=== PATIENT | female | born 1950 | race Caucasian/White ===

== ENCOUNTER 2016-06-14 14:48 | Inpatient (IN) | payer MEDICARE ==
[~2016-06-14] VITALS: Ht 160 cm; Wt 102.0 kg
[2016-06-17] MEDS ORDERED: OXCA600T PO (10:39)
[2016-06-17] MEDS ORDERED: SYNT175T PO (10:40)
[2016-06-17] MEDS ORDERED: AMLO5 PO (10:41)
[2016-06-17] MEDS ORDERED: LISI-519 PO (10:42)
[2016-07-01] MEDS ORDERED: ENOX40P SQ (07:23)
[2016-07-01] MEDS ORDERED: PERC5TAB12 PO (07:24)
[2016-07-01] MEDS ORDERED: NALOXONE HCL 0.4 MG/ML AMP IV PRN (07:30)
[2016-07-01] MEDS ORDERED: SODIUM CHLORIDE 0.9% FLUSH 5 ML FLUSH IVF PRN (07:30)
[2016-07-01] MEDS ORDERED: Post-op Orders (for Pharmacy) MISC XX ONE (07:30)
[2016-07-01] MEDS ORDERED: ZOLPIDEM TARTRATE 5 MG TAB PO PRN (07:30)
[2016-07-01] MEDS ORDERED: oxyCODONE/ACETAMINOPHEN 5 MG/325 MG TAB PO PRN (07:30)
[2016-07-01] MEDS ORDERED: diphenhydrAMINE HCL 50 MG/ML VIAL IV PRN (07:30)
[2016-07-01] MEDS ORDERED: MAGNESIUM HYDROXIDE SUSP 30 ML CUP PO PRN (07:30)
[2016-07-01] MEDS: POVIDONE IODINE 7.5% SCRUB 118 ML BOTTLE TOP SCH (07:30)
[2016-07-01] MEDS ORDERED: BISACODYL 10 MG SUPP PR PRN (07:30)
[2016-07-01] MEDS ORDERED: LISINOPRIL 5 MG TAB PO PRN (07:30)
[2016-07-01] MEDS ORDERED: ALUMINUM/MAGNESIUM/SIMETH 30 ML CUP PO PRN (07:30)
[2016-07-01 07:50] VITALS: BP 160/83; PULSE 64; RESP 20; TEMP 97.8; O2SAT 97
[2016-07-01] MEDS: CHLORHEXIDINE GLUCONATE 4% SOLN 120 ML BTL TOP SCH (08:15)
[2016-07-01] MEDS ORDERED: VANCOMYCIN 1000 MG/NS 250 ML (for <70 kg) IV SCH ×2 (08:15)
[2016-07-01] MEDS ORDERED: SODIUM CHLORIDE 0.9% IV SCH (08:15)
[2016-07-01] MEDS ORDERED: TRANEXAMIC ACID IV SCH (08:15)
[2016-07-01] MEDS: TRANEXAMIC PERI-ARTICULAR 3,000 MG/NS 100 ML P-ARTICULR SCH ×4 (08:15→11:24)
[2016-07-01] MEDS ORDERED: ceFAZolin 2 GM PREMIX 50 ML IV SCH (08:15)
[2016-07-01] MEDS: BUPIVACAINE LIPOSO PF 1.3% INJ 20 ML in SODIUM CHLORIDE 0.9% INJ 40 ML P-ARTICULR SCH ×2 (08:15→11:24)
[2016-07-01] MEDS: TRANEXAMIC ACID IV SCH ×2 (08:16→10:59)
[2016-07-01] MEDS: SODIUM CHLORIDE 0.9% IV SCH ×2 (08:16→10:59)
[2016-07-01] MEDS: SODIUM CHLORIDE 0.9% FLUSH 5 ML FLUSH IVF SCH ×2 (09:00→20:41)
[2016-07-01] MEDS: OXcarbazepine 600 MG TAB PO SCH ×2 (09:00→21:00)
[2016-07-01] MEDS ORDERED: NON-FORMULARY DRUG (Levothyroxine (Synthroid) 175 MCG) PO SCH (09:00)
[2016-07-01] MEDS: SODIUM CHLORID 0.9% 500 ML IV SCH ×2 (09:45→19:48)
[2016-07-01] MEDS: LACTATED RINGER'S 1000 ML IV SCH (09:45)
[2016-07-01] MEDS ORDERED: INSULIN HUMAN REGULAR 1,000 UNITS/10 ML VIAL SQ PRN (09:45)
[2016-07-01] MEDS ORDERED: METOPROLOL TARTRATE 25 MG TAB PO PRN (09:45)
[2016-07-01] MEDS ORDERED: MIDAZOLAM HCL 2 MG/2 ML VIAL ONE ×2 (09:47→09:49)
[2016-07-01] MEDS ORDERED: FAMOTIDINE 20 MG/2 ML VIAL ONE (09:48)
[2016-07-01] MEDS ORDERED: fentaNYL CITRATE 250 MCG/5 ML AMP ONE ×3 (09:49→11:30)
[2016-07-01] MEDS ORDERED: ONDANSETRON HCL 4 MG/2 ML VIAL ONE (09:49)
[2016-07-01] MEDS: LEVOTHYROXINE SODIUM 100 MCG TAB PO SCH (10:00)
[2016-07-01] MEDS: LEVOTHYROXINE SODIUM 75 MCG TAB PO SCH (10:00)
[2016-07-01] MEDS ORDERED: GENTAMICIN SULFATE 80 MG/2 ML VIAL ONE ×2 (10:10)
[2016-07-01] MEDS ORDERED: PHENYLEPH/NS 1000 MCG/10 ML SYR IV ONE (12:00)
[2016-07-01] MEDS ORDERED: LACTATED RINGER'S 1000 ML INJ 1,000 ML IV ONE (12:00)
[2016-07-01] MEDS ORDERED: PROPOFOL 200 MG/20 ML AMP IV ONE (12:00)
[2016-07-01] MEDS ORDERED: ePHEDrine/NS 50 MG/5 ML SYR IV ONE (12:00)
[2016-07-01] MEDS ORDERED: *HYDROmorphone PF 1 MG VIAL PERIprocedural Use ONLY ONE ×2 (12:51→13:22)
[2016-07-01] MEDS: SODIUM CHLOR 0.9% 1000 ML INJ 1,000 ML IV SCH ×2 (13:00→19:00)
[2016-07-01] MEDS ORDERED: DO NOT ADM ANY ANTICOAGULANT DRUGS XX PRN (13:00)
--- NOTE | 2016-07-01 13:48 | RADRPT ---
EXAM DATE/TIME: 07/01/2016 12:50 [facility] COMPARISON: No previous studies available for comparison. INDICATIONS : Post op right hip arthroplasty. MEDICAL HISTORY : None. SURGICAL HISTORY : None. ENCOUNTER: Initial ACUITY: 1 day PAIN SCORE: 6/10 LOCATION: Right hip FINDINGS: 4 views of the pelvis and right hip reveal a total hip prosthesis on the right. This is in good posit ion. No fracture or dislocation. A small amount of air is seen within the joint and overlying soft ti ssues. CONCLUSION: Right total hip prosthesis in good position. Narciso Galaviz Jr., MD on July 01, 2016 at 13:46 Board Certified Radiologist. This report was verified electronically.
[2016-07-01] MEDS: HYDROmorphone HCL PF 1 MG/ML VIAL IV PUSH PRN ×2 (16:05→20:40)
--- NOTE | 2016-07-01 17:05 | PD.CONS ---
HPI Service [facility] Hospitalists Consult Requested By Ortho Reason for Consult Medical management Primary Care Physician Non-Staff Diagnoses: History of Present Illness 66 years old female with history of osteoarthritis, hypothyroidism, trigeminal neuralgia, hypertension, admitted under ortho service for right total hip arthroplasty which patient just had, I saw her in the PACU, hospitalist consulted to see the patient for medical management. Patient currently awake alert oriented she is in mild distress due to pain from the surgery, 9 out of 10 , no nausea vomiting, no chest pain, no abdominal pain diarrhea constipation. As mentioned above patient hasH/O hypothyroidism, trigeminal neurology for which she had 2 brain surgery as per her words Review of Systems Other All 10 systems reviewed and was positive for what is mentioned in history of present illness otherwise negative Past Family Social History Allergies: Coded Allergies: Morphine (Verified Allergy, Severe, VOMIT, 07/01/16) Sulfa (Verified Allergy, Severe, SEVERE HEADACHE, 07/01/16) Hydrocodone (Verified Adverse Reaction, Severe, severe headache, 07/01/16) Past Medical History Hypothyroidism Trigeminal neuralgia Hypertension Osteoarthritis Past Surgical History Left knee arthroplasty 2 brain surgery for trigeminal neuralgia as per the patient Family History Not aware of any medical disease significant runs in her family Social History Denied tobacco or obstructive use, she drinks a glass of wine occasionally "I'm Malay " Physical Exam Vital Signs Vital Signs Date Time Temp Pulse Resp B/P Pulse Ox O2 Delivery O2 Flow Rate FiO2 07/01/16 15:00 60 12 172/85 99 07/01/16 14:30 75 12 152/70 99 07/01/16 14:15 69 14 145/67 98 07/01/16 14:00 62 14 144/69 98 07/01/16 13:45 66 12 142/81 98 07/01/16 13:30 63 12 126/66 98 07/01/16 13:15 68 14 169/81 99 07/01/16 13:00 65 12 123/72 100 07/01/16 12:45 54 12 117/60 99 Nasal Cannula 2 07/01/16 12:39 97.5 72 12 127/69 96 Nasal Cannula 2 07/01/16 07:50 97.8 64 20 160/83 97 Physical Exam GENERAL: This is a well-nourished, well-developed patient, in no apparent distress. SKIN: No rashes, warm and dry HEAD: Atraumatic. Normocephalic. EYES: Pupils equal round and reactive. Extraocular motions intact. No scleral icterus. ENT: Nose without bleeding, or drainage, Airway patent. NECK: Trachea midline. Supple CARDIOVASCULAR: Regular rate and rhythm without murmurs, gallops, or rubs. RESPIRATORY: Fair air entry bilaterally. No wheezes, rales, or rhonchi. GASTROINTESTINAL: Abdomen soft, non-tender, nondistended. Positive bowel sounds MUSCULOSKELETAL: Extremities without clubbing, cyanosis, or edema. Pedal pulses appreciated NEUROLOGICAL: Awake and alert. Moves all extremity. Normal speech.no focal neurological deficit Laboratory Laboratory Tests Test 07/01/16 07:35 Blood Type B POSITIVE Antibody Screen NEGATIVE Imaging Last Impressions Hip and Pelvis X-Ray 07/01/16 0000 Signed Impressions: Service Date/Time: Friday, July 01, 2016 12:50 - CONCLUSION: Right total hip prosthesis in good position. Narciso Galaviz Jr., MD Assessment and Plan Assessment and Plan -66 years old female admitted for -Osteoarthritis status post right total hip arthroplasty: Doing well postop PUD #0, pain management, DVT prophylaxis per ortho on Lovenox -Hypertension essential: Agree with continuing lisinopril and amlodipine, will add Vasotec as needed and monitor blood pressure -History of trigeminal neuralgia: Agree with continuing Tegretol -Hypothyroidism: continuing Synthroid -DVT prophylaxis with Lovenox postop Thank you for this consultation will follow patient along with you Discussed Condition With Patient and the nurse in the PACU Meenakshi Palma MD Jul 01, 2016 17:05
[2016-07-01 17:18] VITALS: BP 153/74; PULSE 92; RESP 17; TEMP 98.1; O2SAT 99
[2016-07-01] MEDS: ONDANSETRON HCL 4 MG/2 ML VIAL IVP PRN ×2 (18:44→20:45)
[2016-07-01 20:30] VITALS: BP 126/69; PULSE 71; RESP 17; TEMP 97.1; O2SAT 98
[2016-07-01] MEDS: oxyCODONE/ACETAMINOPHEN 5 MG/325 MG TAB PO PRN (23:06)
[2016-07-01 23:40] VITALS: BP 132/65; PULSE 71; RESP 17; TEMP 96; O2SAT 99
[2016-07-02] MEDS: HYDROmorphone HCL PF 1 MG/ML VIAL IV PUSH PRN ×3 (02:37→15:15)
[2016-07-02 03:35] VITALS: BP 130/60; PULSE 68; RESP 17; TEMP 97.6; O2SAT 94
[2016-07-02 06:13] LABS: HEMATOCRIT 35.5 % (35.0-46.0); MEAN CELL VOLUME 86.8 FL (80.0-100.0); MEAN CORPUSCULAR HEMOGLOBIN 29.2 PG (27.0-34.0); MEAN CORPUSCULAR HGB CONC 33.7 % (32.0-36.0); PLATELET COUNT 222 TH/MM3 (150-450); RED BLOOD COUNT 4.09 MIL/MM3 (4.00-5.30); RED CELL DISTRIBUTION WIDTH 13.6 % (11.6-17.2); REVIEW FLAG FINAL; WHITE BLOOD COUNT 8.7 TH/MM3 (4.0-11.0)
[2016-07-02 06:49] LABS: BICARBONATE 27.5 MEQ/L (21.0-32.0); POTASSIUM 4.2 MEQ/L (3.5-5.1)
[2016-07-02] MEDS: LEVOTHYROXINE SODIUM 75 MCG TAB PO SCH (07:24)
[2016-07-02] MEDS: LEVOTHYROXINE SODIUM 100 MCG TAB PO SCH (07:24)
[2016-07-02] MEDS: oxyCODONE/ACETAMINOPHEN 5 MG/325 MG TAB PO PRN ×4 (07:25→18:25)
[2016-07-02 08:00] VITALS: BP 138/63; PULSE 62; RESP 18; TEMP 97.2; O2SAT 100
--- NOTE | 2016-07-02 08:54 | PD.ORT.PN ---
Subjective Post Op Day #: 1 Subjective Remarks painful. Objective Vitals Vital Signs Date Time Temp Pulse Resp B/P Pulse Ox O2 Delivery O2 Flow Rate FiO2 07/02/16 08:00 97.2 62 18 138/63 100 07/02/16 07:30 100 Nasal Cannula 2.00 07/02/16 03:35 97.6 68 17 130/60 94 07/01/16 23:40 96.0 71 17 132/65 99 07/01/16 20:30 97.1 71 17 126/69 98 07/01/16 19:19 Nasal Cannula 2.00 07/01/16 17:18 98.1 92 17 153/74 99 07/01/16 16:45 97.9 69 16 169/66 98 Nasal Cannula 2 07/01/16 15:00 60 12 172/85 99 07/01/16 14:30 75 12 152/70 99 07/01/16 14:15 69 14 145/67 98 07/01/16 14:00 62 14 144/69 98 07/01/16 13:45 66 12 142/81 98 07/01/16 13:30 63 12 126/66 98 07/01/16 13:15 68 14 169/81 99 07/01/16 13:00 65 12 123/72 100 07/01/16 12:45 54 12 117/60 99 Nasal Cannula 2 07/01/16 12:39 97.5 72 12 127/69 96 Nasal Cannula 2 I/O 07/01/16 07/01/16 07/01/16 07/02/16 07/02/16 07/02/16 07:00 15:00 23:00 07:00 15:00 23:00 Intake Total 1900 ml 1030 ml 422 ml 240 ml Output Total 1200 ml 1075 ml 650 ml Balance 700 ml -45 ml 422 ml -410 ml Intake Oral 360 ml 240 ml IV Total 670 ml 422 ml Other 1900 ml Output Urine Total 200 ml 1075 ml 650 ml Estimated Blood Loss 400 ml Other 600 ml # Bowel Movements 0 0 Result Diagram: 07/02/16 0530 07/02/16 0530 Objective Remarks in bed, nad dressing c/d/i neg homans nvi Assessment & Plan Ortho Post Op Day #: 1 Problem List: Assessment and Plan s/p R ENA - posterior approach wbat - posterior hip precautions daily dressing changes lovenox d/c planning home with [facility] and pt rx in chart f/up dr. rivas 2 weeks Dylan Leyva Jul 02, 2016 08:54
--- NOTE | 2016-07-02 08:56 | HHI.FF ---
Face to Face Verification Diagnosis: (1) Primary localized osteoarthrosis, pelvic region and thigh Physical Therapy Gait training, Safety evaluation, Transfer training, bed to chair Hip: Total hip, Protocol: Right, Progress to weight bearing Canvas Knee Splint: When in bed & 2 pillows btw thighs Right LE Weight Bearing: WB as tolerated Nursing RN: 3 days/week x 2 weeks Nursing: Rodrick teaching, Dressing changes Dressing Changes: Daily dressing change I have seen patient Rena Ahuja on 07/02/16. My clinical findings support the need for the requested home health care services because: Limited ability to care for self High risk of falls I certify that my clinical findings support that this patient is homebound because: Post-op weakness Unsteady gait/balance Dylan Leyva Jul 02, 2016 08:56
--- NOTE | 2016-07-02 08:56 | HHI.DCPOC ---
Discharge Care Plan Diagnosis: (1) Primary localized osteoarthrosis, pelvic region and thigh Your Health Problems Are: Difficulty with ADL Goals to Promote Your Health * To prevent worsening of your condition and complications * To maintain your health at the optimal level Directions to Meet Your Goals Take your medications as prescribed Follow your dietary instruction Follow activity as directed Keep your appointments as scheduled Take your immunizations and boosters as scheduled If your symptoms worsen call your PCP, if no PCP go to Urgent Care Center or Emergency Room Smoking is Dangerous to Your Health. Avoid second hand smoke Call the 24-hour hour crisis hotline for domestic abuse at Dylan Leyva Jul 02, 2016 08:56
[2016-07-02] MEDS ORDERED: MISC-163 (08:57)
[2016-07-02] MEDS: amLODIPine BESYLATE 5 MG TAB PO SCH ×2 (09:00→10:27)
[2016-07-02] MEDS: SODIUM CHLORIDE 0.9% FLUSH 5 ML FLUSH IVF SCH ×2 (09:00→21:00)
[2016-07-02] MEDS: LACTATED RINGER'S 1000 ML IV SCH (09:45)
--- NOTE | 2016-07-02 09:53 | HHI.PR ---
Subjective Remarks Patient stated she is doing very well, pain is tolerable, afebrile, no chest pain or short of breath Objective Vitals Vital Signs Date Time Temp Pulse Resp B/P Pulse Ox O2 Delivery O2 Flow Rate FiO2 07/02/16 08:00 97.2 62 18 138/63 100 07/02/16 07:30 100 Nasal Cannula 2.00 07/02/16 03:35 97.6 68 17 130/60 94 07/01/16 23:40 96.0 71 17 132/65 99 07/01/16 20:30 97.1 71 17 126/69 98 07/01/16 19:19 Nasal Cannula 2.00 07/01/16 17:18 98.1 92 17 153/74 99 07/01/16 16:45 97.9 69 16 169/66 98 Nasal Cannula 2 07/01/16 15:00 60 12 172/85 99 07/01/16 14:30 75 12 152/70 99 07/01/16 14:15 69 14 145/67 98 07/01/16 14:00 62 14 144/69 98 07/01/16 13:45 66 12 142/81 98 07/01/16 13:30 63 12 126/66 98 07/01/16 13:15 68 14 169/81 99 07/01/16 13:00 65 12 123/72 100 07/01/16 12:45 54 12 117/60 99 Nasal Cannula 2 07/01/16 12:39 97.5 72 12 127/69 96 Nasal Cannula 2 I/O 07/01/16 07/01/16 07/01/16 07/02/16 07/02/16 07/02/16 07:00 15:00 23:00 07:00 15:00 23:00 Intake Total 1900 ml 1030 ml 422 ml 240 ml Output Total 1200 ml 1075 ml 650 ml Balance 700 ml -45 ml 422 ml -410 ml Intake Oral 360 ml 240 ml IV Total 670 ml 422 ml Other 1900 ml Output Urine Total 200 ml 1075 ml 650 ml Estimated Blood Loss 400 ml Other 600 ml # Bowel Movements 0 0 Result Diagram: 07/02/16 0530 07/02/16 0530 Objective Remarks GENERAL: This is a well-nourished, well-developed patient, in no apparent distress. SKIN: No rashes, warm and dry HEAD: Atraumatic. Normocephalic. EYES: Pupils equal round and reactive. Extraocular motions intact. No scleral icterus. ENT: Nose without bleeding, or drainage, Airway patent. NECK: Trachea midline. Supple CARDIOVASCULAR: Regular rate and rhythm without murmurs, gallops, or rubs. RESPIRATORY: Fair air entry bilaterally. No wheezes, rales, or rhonchi. GASTROINTESTINAL: Abdomen soft, non-tender, nondistended. Positive bowel sounds MUSCULOSKELETAL: Extremities without clubbing, cyanosis, or edema. Pedal pulses appreciated NEUROLOGICAL: Awake and alert. Moves all extremity. Normal speech.no focal neurological deficit A/P Assessment and Plan -66 years old female admitted for -Osteoarthritis status post right total hip arthroplasty: Doing well postop PUD #0, pain management, DVT prophylaxis per ortho on Lovenox -Hypertension essential: Agree with continuing lisinopril and amlodipine, will add Vasotec as needed and monitor blood pressure -History of trigeminal neuralgia: Agree with continuing Tegretol -Hypothyroidism: continuing Synthroid -DVT prophylaxis with Lovenox postop Meenakshi Palma MD Jul 02, 2016 09:53
[2016-07-02] MEDS: OXcarbazepine 600 MG TAB PO SCH ×2 (10:26→21:00)
[2016-07-02 12:00] VITALS: BP 140/65; PULSE 67; RESP 18; TEMP 97.6; O2SAT 100
[2016-07-02] MEDS: ENOXAPARIN SODIUM 40 MG/0.4 ML SYRINGE SQ SCH (12:00)
[2016-07-02] MEDS: SODIUM CHLOR 0.9% 1000 ML INJ 1,000 ML IV SCH (15:00)
[2016-07-02 16:00] VITALS: BP 137/70; PULSE 68; RESP 17; TEMP 97.3; O2SAT 100
[2016-07-02 18:30] VITALS: O2SAT 99
[2016-07-02 19:50] VITALS: BP 136/70; PULSE 90; RESP 18; TEMP 97.9; O2SAT 95
[2016-07-02] MEDS: DOCUSATE SODIUM 100 MG CAP PO SCH (21:00)
[2016-07-02] MEDS: MULTIVITAMINS/MINERALS THERAPEUTIC TAB PO SCH (21:00)
[2016-07-03 00:10] VITALS: BP 122/57; PULSE 87; RESP 18; TEMP 96.9; O2SAT 97
[2016-07-03] MEDS: SODIUM CHLOR 0.9% 1000 ML INJ 1,000 ML IV SCH ×2 (01:00→08:48)
[2016-07-03] MEDS: LEVOTHYROXINE SODIUM 100 MCG TAB PO SCH (05:52)
[2016-07-03] MEDS: LEVOTHYROXINE SODIUM 75 MCG TAB PO SCH (05:52)
[2016-07-03] MEDS: oxyCODONE/ACETAMINOPHEN 5 MG/325 MG TAB PO PRN ×2 (05:53→10:02)
[2016-07-03] MEDS: CHLORHEXIDINE GLUCONATE 4% SOLN 120 ML BTL TOP SCH (07:39)
[2016-07-03] MEDS: POVIDONE IODINE 7.5% SCRUB 118 ML BOTTLE TOP SCH (07:39)
[2016-07-03 08:00] VITALS: BP 152/88; PULSE 88; RESP 20; TEMP 98.8; O2SAT 95
[2016-07-03 08:26] LABS: MEAN CELL VOLUME 87.1 FL (80.0-100.0); MEAN CORPUSCULAR HEMOGLOBIN 29.4 PG (27.0-34.0); MEAN CORPUSCULAR HGB CONC 33.7 % (32.0-36.0); PLATELET COUNT 217 TH/MM3 (150-450); RED BLOOD COUNT 4.02 MIL/MM3 (4.00-5.30); RED CELL DISTRIBUTION WIDTH 13.8 % (11.6-17.2); REVIEW FLAG FINAL; WHITE BLOOD COUNT 9.2 TH/MM3 (4.0-11.0)
--- NOTE | 2016-07-03 08:34 | PD.ORT.PN ---
Subjective Post Op Day #: 2 Subjective Remarks feeling much better. ready to go home. Objective Vitals Vital Signs Date Time Temp Pulse Resp B/P Pulse Ox O2 Delivery O2 Flow Rate FiO2 07/03/16 00:10 96.9 87 18 122/57 97 07/02/16 19:50 97.9 90 18 136/70 95 07/02/16 18:30 99 21 07/02/16 16:00 97.3 68 17 137/70 100 07/02/16 12:00 97.6 67 18 140/65 100 I/O 07/02/16 07/02/16 07/02/16 07/03/16 07/03/16 07/03/16 07:00 15:00 23:00 07:00 15:00 23:00 Intake Total 422 ml 960 ml 720 ml 460 ml Output Total 650 ml Balance 422 ml 310 ml 720 ml 460 ml Intake Oral 960 ml 720 ml 460 ml IV Total 422 ml Output Urine Total 650 ml # Voids 4 4 5 # Bowel Movements 0 1 0 Result Diagram: 07/03/16 0807 07/02/16 0530 Objective Remarks in bed, nad, eating incision no erythema, no drainage neg homans nvi Assessment & Plan Ortho Post Op Day #: 2 Problem List: Assessment and Plan s/p R ENA - posterior approach wbat - posterior hip precautions daily dressing changes lovenox d/c planning home with [facility]hc and pt - cleared for d/c today rx in chart f/up dr. rivas 2 weeks Dylan Leyva Jul 03, 2016 08:33
[2016-07-03] MEDS: SODIUM CHLORIDE 0.9% FLUSH 5 ML FLUSH IVF SCH (08:42)
[2016-07-03] MEDS: MULTIVITAMINS/MINERALS THERAPEUTIC TAB PO SCH (08:42)
[2016-07-03] MEDS: LACTATED RINGER'S 1000 ML IV SCH (08:42)
[2016-07-03] MEDS: DOCUSATE SODIUM 100 MG CAP PO SCH (08:42)
[2016-07-03] MEDS: OXcarbazepine 600 MG TAB PO SCH (08:42)
[2016-07-03] MEDS: amLODIPine BESYLATE 5 MG TAB PO SCH (08:42)
[2016-07-03 08:45] LABS: BICARBONATE 27.3 MEQ/L (21.0-32.0)
[2016-07-03 12:00] VITALS: BP 125/60; PULSE 83; RESP 20; TEMP 98.9; O2SAT 95
[2016-07-03] MEDS: ENOXAPARIN SODIUM 40 MG/0.4 ML SYRINGE SQ SCH (12:22)
--- NOTE | 2016-07-04 13:55 | MP ---
cc: GUILLERMO EDWARDS DATE OF SURGERY 07/01/2016 PREOPERATIVE DIAGNOSIS Right hip osteoarthritis POSTOPERATIVE DIAGNOSES Right hip osteoarthritis PROCEDURE Right total hip arthroplasty SURGEON Dr. Guillermo Edwards SPIRITS MODEL GRISELDA Ortega ANESTHESIA General ESTIMATED BLOOD LOSS 200 cc COMPLICATIONS None IMPLANTS USED DePuy Corail size 11 Press-Fit standard offset femoral stem, size 48 Orem Gription cup, size 32 mm ceramic head, size +4 high offset liner, size +5 neck. JUSTIFICATION This is a 66-year-old female with a history of severe end-stage osteoarthritis involving the right hip. She has severe disabling pain with standing, walking ambulation and weight-bearing activities, even severe pain at rest. She has failed greater than three months of nonoperative conservative treatment to include medications, therapy injections, ambulatory assistive aids, home exercise program, activity modification, weight loss attempts. X-rays of the right hip reveals severe end-stage osteoarthritis with [id number] joint space narrowing, subchondral sclerosis, subchondral cyst, osteophyte formation associated subluxation. The patient was counseled as to the risks, benefits and alternatives to a total hip arthroplasty. The risks were discussed which include but are not limited to anesthesia, bleeding, infection, damage to blood vessels, pain, failure of the components, leg length discrepancy, dislocation, blood clots, pulmonary embolism, and even . The patient understands the patient understands the risks and favors the benefits over the risks and did wish to proceed with surgery. PROCEDURE IN DETAIL A written consent was obtained. The patient identified by name, taken to the operating room, placed supine on the operating room table. General anesthesia administered to the patient, as well as two grams of IV Ancef and one gram of IV vancomycin. The patient carefully turned to the left lateral decubitus position. A lateral arm roll was placed. All bony prominences and pressure points were well padded. The patient's neck was carefully monitored and kept neutral. The right hip and right lower extremity prepped and draped using Isopropyl alcohol, Hibiclens solution and Chloraprep solution. After appropriate time-out was performed, a longitudinal incision was made over posterolateral aspect of the right hip. The fascial layer was incised. The pyriformis and capsule was incised and tagged with #2 FiberWire suture. The hip was dislocated posteriorly. An oscillating saw was used to perform a femoral neck cut. The osteoarthritic diseased femoral head and neck component was removed. A 10 blade scalpel was used to excise the labrum. Sequential reaming began at size 44 mm and was carried through to size 48 mm. Subsequently, a Orem Gription cup was implanted in a Press-Fit manner in approximately 45 degrees of abduction and 10 degrees anteversion. There was excellent purchase and fixation after insertion of the cup. The screw hole eliminator was placed, followed by the +4 posterior high walled polyethylene liner. The liner was impacted in place and tested for stability. Attention turned to the femur where a box cutting osteotome was used to gain entrance into the intramedullary canal of the femur. This was followed by canal finder and lateralizing reamer. Sequential broaching up to size 11 was followed by calcar planer. Trial head and neck combinations were evaluated and the final component was implanted with the +5 neck, 32 mm head. Leg length felt relatively symmetric upon clinical examination. The hip could be flexed 90 degrees and internally rotated 70 degrees before evidence of posterior instability. No evidence of impingement or instability with full extension and external rotation. The surgical wounds thoroughly irrigated sterile saline pulse lavage antibiotic impregnated solution. The pyriformis and capsules primarily repaired with #2 FiberWire suture. Fascial layer closed with #1 Vicryl suture, subcutaneous layer closed with 2-0 Vicryl suture. Skin was closed with Dermabond. Sterile dressings applied. The patient tolerated the procedure well and had no intraoperative complications noted. Eldon Leyva, physician sales assistants and salespersons certified, was present during the entire procedure to include patient positioning and the procedure itself. The medical necessity of a physician sales assistants and salespersons was indicated in this case due to the complexity of the procedure. He assisted with appropriate manipulation of the leg and also retraction of muscle, tendon, bone and neurovascular structures. He assisted with both preparation of the bone and implantation of the prosthetic replacement. MD JAMES Tyson/NITO /12:18 PM /1:45 PM
--- NOTE | 2016-07-11 09:23 | MD ---
cc: GUILLERMO SUAREZ ADMISSION DATE: 07/01/2016 DISCHARGE DATE: 07/03/2016 ADMISSION DIAGNOSIS Severe degenerative osteoarthritis right hip. DISCHARGE DIAGNOSIS Severe degenerative osteoarthritis right hip. HISTORY OF PRESENT ILLNESS Mrs. Ahuja is a 66-year-old female who presented to the [facility] for evaluation by Dr. Guillermo Suarez regarding her severe and progressive right hip pain. The patient states it has been bothering her for greater than one year duration for she has been treated for this ailment for greater than six months. She states currently the pain is a constant severe aching sensation inhibiting her activities of daily living. It is aggravated by weightbearing activities. She notes she has no significant alleviating factors at this point in time, although in the past, she has tried medications and assistive devices, therapy and even corticosteroid injection without long-lasting relief of symptoms. She does have x-ray evidence of severe degenerative osteoarthritis of the right hip. While in the office, the patient was counseled on her diagnosis and treatment options. The risks, benefits and indications were discussed in great detail. Patient asked appropriate questions which were answered. The patient did elect to proceed with surgical intervention to include a right total hip arthroplasty. Date of surgery, 07/01/2016 right total hip arthroplasty posterior approach. Postop after surgery, the patient admitted to [facility] where she received appropriate medical management, pain control, DVT prophylaxis, as well as physical therapy. Once being discharged from the hospital, the patient cleared to go home where she received home health care and home physical therapy. She is in stable condition. She can weight-bear as tolerated with posterior hip precautions. She is to receive daily dressing changes and has been instructed on her appropriate wound care management. Patient has been provided prescriptions for pain control, as well as DVT prophylaxis medication. She has also been provided a follow-up appointment see Dr. Guillermo Suarez in the office in approximately two weeks from her date of surgery. The patient has asked appropriate questions which have all been answered. The patient is cleared for discharge. Dictated by GRISELDA Camara MD JAMES Tyson/NITO /8:37 AM /9:22 AM
== END 2016-07-03 12:56 | disposition home health service (06) | DRG 470 ==
LOC: HSDI 07-01 06:55 → N06B 07-01 17:03
PROVIDERS: ADMIT Orthopaedic Surgery Sports Medicine; ATTEND Orthopaedic Surgery Sports Medicine
PROC: 0SR904A Replacement of Right Hip Joint with Ceramic on Polyethylene Synthetic Substitute, Uncemented, Open Approach (ICD-10-PCS; principal; 2016-07-01 10:36)
DX: M16.11 Unilateral primary osteoarthritis, right hip (principal); E66.01 Morbid (severe) obesity due to excess calories; I10 Essential (primary) hypertension; E03.9 Hypothyroidism, unspecified; G50.0 Trigeminal neuralgia; M25.751 Osteophyte, right hip; Z68.39 Body mass index [BMI] 39.0-39.9, adult; Z87.891 Personal history of nicotine dependence; Z88.2 Allergy status to sulfonamides; Z88.5 Allergy status to narcotic agent
CPT/HCPCS: 73502; 80048; 85027; 86850; 86900; 86901; 94150; C1776; C9290; J0690; J1170; J1580; J1650; J2250; J2370; J2405; J3010; J3370; J7030; J7050; J7120; L1830

== ENCOUNTER → 2016-06-17 | Outpatient (CLI) | payer MEDICARE ==
[~2016-06-17] MED LIST: AMIT25TA20 PO; AMLO5 PO; CLON.5 PO; ENOX40P SQ; LISI-519 PO; MISC-163; OXCA150T2 PO; OXCA600T PO; PERC5TAB12 PO; RIVA10 PO; SYNT175T PO; ULTR50TA PO; VITA500015 PO
[2016-06-17 10:52] LABS: AUTOMATED NEUTROPHIL # 4.8 TH/MM3 (1.8-7.7); BASOPHIL # 0.1 TH/MM3 (0-0.2); BASOPHIL % 0.7 % (0.0-2.0); EOSINOPHIL # 0.1 TH/MM3 (0-0.4); EOSINOPHIL % 1.2 % (0.0-4.0); HEMO FLAGS DIFF FINAL; LYMPH % 24.6 % (9.0-44.0); LYMPHOCYTE # 1.7 TH/MM3 (1.0-4.8); MEAN CORPUSCULAR HEMOGLOBIN 29.4 PG (27.0-34.0); MEAN CORPUSCULAR HGB CONC 34.2 % (32.0-36.0); NEUT % 68.5 % (16.0-70.0); PLATELET COUNT 268 TH/MM3 (150-450); RED BLOOD COUNT 4.76 MIL/MM3 (4.00-5.30); RED CELL DISTRIBUTION WIDTH 13.8 % (11.6-17.2)
[2016-06-17 11:01] LABS: APTT (PATIENT) 24.6 SEC (24.3-30.1); INTERNATIONAL NORMALIZED RATIO 0.9 RATIO; PROTHROMBIN TIME - PATIENT 10.4 SEC (9.8-11.6)
[2016-06-17 11:09] LABS: WESTERGREN SEDIMENTATION RATE 12 mm/hr (0-30)
[2016-06-17 11:21] LABS: ALKALINE PHOSPHATASE 60 U/L (45-117); ALT (GPT) 22 U/L (10-53); ANION GAP 8 MEQ/L (5-15); AST (GOT) 12 U/L (15-37); BICARBONATE 27.3 MEQ/L (21.0-32.0); BLOOD UREA NITROGEN 23 MG/DL (7-18); CHLORIDE 104 MEQ/L (98-107); GLOMERULAR FILTRATION RATE 55 ML/MIN (>89); GLUCOSE,FASTING 135 MG/DL (74-99); POTASSIUM 4.4 MEQ/L (3.5-5.1); SODIUM (NA) 139 MEQ/L (136-145); TOTAL BILIRUBIN ADULT 0.2 MG/DL (0.2-1.0)
[2016-06-17 12:29] LABS: BLOOD, URINE TRACE (NEG); GLUCOSE,URINE NEG (NEG); KETONE, URINE NEG (NEG); MUCUS URINE FEW /lpf (OCC); NITRITE,URINE NEG (NEG); SQUAMOUS EPITHELIAL CELL URINE <1 /hpf (0-5); URINE COLOR YELLOW (YELLW/STRAW)
[2016-06-17 12:31] LABS: COMMENT (UR) CULT NOT INDICATED; CULTURE IF INDICATED CULT NOT INDICATED
--- NOTE | 2016-06-17 14:26 | RADRPT ---
EXAM DATE/TIME: 06/17/2016 12:24 [facility] COMPARISON: KNEE LEFT LTD (1 OR 2VWS), June 05, 2012, 10:25. INDICATIONS : Evaluate for pneumonia, pneumothorax, communicable disease. MEDICAL HISTORY : None. SURGICAL HISTORY : None. ENCOUNTER: Initial ACUITY: 1 day PAIN SCORE: 0/10 LOCATION: Bilateral chest FINDINGS: PA and lateral views of the chest demonstrate the lungs to be symmetrically aerated without evidence of mass, infiltrate or effusion. The cardiomediastinal contours are unremarkable. Osseous structure s are intact. CONCLUSION: No acute disease. Marcia Nye MD on June 17, 2016 at 12:40 Board Certified Radiologist. This report was verified electronically.
--- NOTE | 2016-06-18 14:19 | EKG ---
Date Performed: 06/17/2016 Time Performed: 11:15:12 PTAGE: 66 years EKG: Sinus rhythm POSSIBLE LEFT ATRIAL ENLARGEMENT BORDERLINE ECG Since PREVIOUS TRACING , no significant change noted DOCTOR: Dewey lLanos Interpretating Date/Time 06/18/2016 14:12:02
== END ==
LOC: CPRE 10:01
PROVIDERS: ATTEND Orthopaedic Surgery Sports Medicine
DX: Z01.810 Encounter for preprocedural cardiovascular examination (principal); Z01.812 Encounter for preprocedural laboratory examination; M16.11 Unilateral primary osteoarthritis, right hip; R94.31 Abnormal electrocardiogram [ECG] [EKG]
CPT/HCPCS: 36415; 71020; 80053; 81001; 85025; 85610; 85652; 85730; 93005